=== PATIENT | female | born 1985 | race Caucasian/White ===

== ENCOUNTER 2022-07-24 18:19 | Emergency (ER) | payer BC ==
[~2022-07-24] VITALS: Ht 154.9 cm; Wt 50.3 kg
[2022-07-24 18:35] VITALS: BP 108/52
--- NOTE | 2022-07-24 18:54 | NUR ---
PATIENT BIB [employer]. PATIENT EXAMINED BY DR. DELGADO. PATIENT MEDICALLY CLEARED AND RELEASED IN CUSTODY IN STABLE CONDITION. ORIGINAL PRE-BOOK FORM GIVEN TO OFFICER [facility]#[id number].
== END 2022-07-24 18:54 ==
LOC: MED 18:19
DX: Z02.89 Encounter for other administrative examinations (principal)
CPT/HCPCS: 99283